=== PATIENT | male | born 1970 | race Caucasian/White ===

== ENCOUNTER 2017-08-06 13:25 | Emergency (ER) | payer BC ==
[2017-08-06 14:08] VITALS: BP 137/76
--- NOTE | 2017-08-06 15:05 | UC ---
Throat Pain/Nasal Harris HPI - HPI Summary HPI Summary: Pt presents with c/o nasal congestion, sinus pressure and tenderness, cough, fever, chills and generalized malaise. Pt did not get flu vaccine this year. - History of Current Complaint Chief Complaint: UCGeneralIllness Stated Complaint: SINUSES Time Seen by Provider: 08/06/17 14:48 Hx Obtained From: Patient Onset/Duration: Gradual Onset Severity: Moderate Pain Intensity: 2 Associated Signs & Symptoms: Positive: Sinus Discomfort, Fever Related History: Smoking - Epiglottits Risk Factors Epiglottis Risk Factors: Negative - Allergies/Home Medications Allergies/Adverse Reactions: Allergies Allergy/AdvReac Type Severity Reaction Status Date / Time Naproxen [From Naprosyn] Allergy Hives Verified 08/06/17 14:08 antibiotic AdvReac Diarrhea Uncoded 08/06/17 14:08 Home Medications: Home Medications Albuterol inh POWDER (NF) [Proair Respiclick] 08/06/17 [History] Spiriva Inhaler DEVICE* [Tiotropium Inhaler DEVICE*] 08/06/17 [History] PMH/Surg Hx/FS Hx/Imm Hx Previously Healthy: No Respiratory History: COPD - Surgical History Surgical History: Yes Surgery Procedure, Year, and Place: b/l hip surgery, R patella fx, hyperesxtension of b/l knees. RIGHT KNEE SURGERY. kidney stone - Family History Known Family History: Positive: Cardiac Disease - Social History Occupation: Employed Full-time Lives: With Family Alcohol Use: Rare Substance Use Type: None Smoking Status (MU): Heavy Every Day Tobacco Smoker Type: Cigarettes Amount Used/How Often: 1 PPD Length of Time of Smoking/Using Tobacco: started ~ age 21 Have You Smoked in the Last Year: Yes Household Exposure Type: Cigarettes Review of Systems Constitutional: Fever, Chills, Fatigue Skin: Negative Eyes: Negative ENT: Sinus Congestion, Sinus Pain/Tenderness Respiratory: Shortness Of Breath, Cough Cardiovascular: Negative Gastrointestinal: Negative Genitourinary: Negative Motor: Negative Neurovascular: Negative Musculoskeletal: Myalgia Neurological: Headache Psychological: Negative Is Patient Immunocompromised?: No All Other Systems Reviewed And Are Negative: Yes Physical Exam Triage Information Reviewed: Yes Appearance: Ill-Appearing Vital Signs: Initial Vital Signs Temp 98.4 F 08/06/17 14:03 Pulse 76 08/06/17 14:03 Resp 18 08/06/17 14:03 BP 137/76 08/06/17 14:03 Pulse Ox 100 08/06/17 14:03 Vital Signs Reviewed: Yes Eye Exam: Normal ENT Exam: Other ENT: Positive: Nasal congestion, TM bulging - bilateral, Sinus tenderness Dental Exam: Normal Neck exam: Normal Respiratory Exam: Normal Cardiovascular Exam: Normal Musculoskeletal Exam: Normal Neurological Exam: Normal Psychological Exam: Normal Skin Exam: Normal Throat Pain/Nasal Course/Dx - Differential Dx/Diagnosis Differential Diagnosis/HQI/PQRI: Influenza, Sinusitis, URI Provider Diagnoses: sinusitis. bronchitis Discharge - Discharge Plan Condition: Stable Disposition: HOME Prescriptions: Amoxicillin/Clavulanate TAB* [Augmentin TAB 875*] 875 mg PO Q12H #20 tab Azithromycin TAB* [Zithromax TAB (Z-JENNIFER) 250 mg #6 tabs] 2 tab PO .TODAY, THEN 1 DAILY #1 jennifer Patient Education Materials: Sinusitis (ED), Acute Bronchitis (ED) Referrals: Andrew Au MD [Primary Care Provider] - If Needed
== END 2017-08-06 15:34 | disposition home or self-care (01) ==
LOC: UCCORT 13:25
DX: J32.9 Chronic sinusitis, unspecified (principal); J40 Bronchitis, not specified as acute or chronic; J44.9 Chronic obstructive pulmonary disease, unspecified; Z87.442 Personal history of urinary calculi; Z88.6 Allergy status to analgesic agent; Z88.1 Allergy status to other antibiotic agents; F17.210 Nicotine dependence, cigarettes, uncomplicated
CPT/HCPCS: 87502; 99212; G0463

== ENCOUNTER 2017-08-12 10:33 | Emergency (ER) | payer BC ==
[2017-08-12 12:19] VITALS: BP 132/85
--- NOTE | 2017-08-12 12:28 | UC ---
Respiratory Complaint HPI - HPI Summary HPI Summary: 46 y/o male presents to the urgent care requesting a re-check on his chest congestion, productive cough. Pt was here at the clinic on 08/06/2017 Dx Sinusitis and bronchitis, Rx Augmentin and Z-neda. He completed z-neda and symptoms are worsening again. Pt states fever for 2 days with mild SOB. Pt denies chest pain, abdominal pain, N/V/D - History of Current Complaint Chief Complaint: UCRespiratory Stated Complaint: F/U CONGESTION COUGH Time Seen by Provider: 08/12/17 12:25 Hx Obtained From: Patient Onset/Duration: Gradual Onset, Lasting Weeks - 1 week, Still Present, Worse Since - 2 days Timing: Constant Severity Initially: Mild Severity Currently: Moderate Pain Intensity: 0 Pain Scale Used: 0-10 Numeric Character: Cough: Productive, Sputum Description: - green Aggravating Factors: Recumbent Position Alleviating Factors: Nothing - ABX Associated Signs And Symptoms: Positive: Fever, Chills, URI, Nasal Congestion, Sinus Discomfort. Negative: Wheezing - Risk Factors Pulmonary Embolism Risk Factors: Negative Cardiac Risk Factors: Negative Pseudomonas Risk Factors: Chronic Lung Disease Tuberculosis Risk Factors: Negative - Allergies/Home Medications Allergies/Adverse Reactions: Allergies Allergy/AdvReac Type Severity Reaction Status Date / Time MS Naproxen [From Naprosyn] Allergy Hives Verified 08/12/17 12:19 antibiotic AdvReac Diarrhea Uncoded 08/12/17 12:19 PMH/Surg Hx/FS Hx/Imm Hx Previously Healthy: Yes Respiratory History: COPD - Surgical History Surgical History: Yes Surgery Procedure, Year, and Place: b/l hip surgery, R patella fx, hyperesxtension of b/l knees. RIGHT KNEE SURGERY. kidney stone - Family History Known Family History: Positive: None, Cardiac Disease, Diabetes - Social History Occupation: Employed Full-time Lives: With Family Alcohol Use: Rare Substance Use Type: None Smoking Status (MU): Heavy Every Day Tobacco Smoker Type: Cigarettes Amount Used/How Often: 1 PPD Length of Time of Smoking/Using Tobacco: started ~ age 21 Have You Smoked in the Last Year: Yes Household Exposure Type: Cigarettes Review of Systems Constitutional: Fever - subjective at home x 2 days, Chills Skin: Negative Eyes: Negative ENT: Nasal Discharge, Sinus Congestion Respiratory: Shortness Of Breath, Cough Cardiovascular: Negative Gastrointestinal: Negative Genitourinary: Negative Motor: Negative Neurovascular: Negative Musculoskeletal: Negative Neurological: Negative Psychological: Negative Is Patient Immunocompromised?: No All Other Systems Reviewed And Are Negative: Yes Physical Exam Triage Information Reviewed: Yes Vital Signs: Initial Vital Signs Temp 97.8 F 08/12/17 12:15 Pulse 80 08/12/17 12:15 Resp 18 08/12/17 12:15 BP 132/85 08/12/17 12:15 Pulse Ox 98 08/12/17 12:15 - Additional Comments Vital Signs Reviewed: Yes General: well developed, well nourished male sitting in the examining table w/o any apparent distress Eyes: Positive: Conjunctiva Clear - PERRLA, EOMI, fundi grossly normal ENT: Positive: Normal ENT inspection, Hearing grossly normal, Pharynx normal, Nasal congestion - edematous and erythematous nasal mucosa, Nasal drainage - yellowish drainage, TMs normal. Negative: Tonsillar swelling, Tonsillar exudate Neck: Positive: Supple, Nontender, No Lymphadenopathy Respiratory: no orthopnea or dyspnea. Able to speak in full sentences, no retractions or accessory muscle use, no tripod position, stridor, or head bobbing.Positive breath sound, scattered rhonchi B/L lungs w/o shlomo wheezing or crackles or rales. Cardiovascular: Positive: RRR, No Murmur, Pulses Normal, Brisk Capillary Refill Abdomen Description: Positive: Nontender, No Organomegaly, Soft. Negative: CVA Tenderness (R), CVA Tenderness (L) Bowel Sounds: Positive: Present Musculoskeletal Exam: Normal Musculoskeletal: Positive: Strength Intact, ROM Intact, No Edema Neurological Exam: Normal Psychological Exam: Normal Skin Exam: Normal Diagnostic Evaluation - Laboratory O2 Sat by Pulse Oximetry: 98 Respiratory Course/Dx - Course Course Of Treatment: 46 y/o male presents to the urgent care requesting a re- check on his chest congestion, productive cough. Pt was here at the clinic on Dx Sinusitis and bronchitis, Rx Augmentin and Z-neda. He completed z-neda and symptoms are worsening again. Pt states fever for 2 days with mild SOB. Pt denies chest pain, abdominal pain, N/V/D. Hx obtained. Pt w/ B/L lungs with scattered rhonchi on examination. Chest X-ray ordered to r/o pneumonia. Impression: No active Cardiopulmonary disease observed. Pt with scattered wheezing on both lungs. O2sat: 98% Pt is a every day smoker. Prednisone 60 mg PO ordered and Duneb treatment ordered. Pt tolerated well medications and her lungs improved. Pt states feeling better. Pt will be Tx for Acute Bronchitis, Pt already taken Z-neda and Augmenting PO w/o any improvement. Pt Rx Doxycycline PO , Prednisone taper dose and Inhaler. Strongly advised to f/u with her PCP for further management on his COPD. Pt understood and agreed with D/C instructions and left the clinic hemodynamically stable. - Differential Dx/Diagnosis Differential Diagnosis/HQI/PQRI: Asthma, Bronchitis, Exacerbation Of COPD, Influenza, Lower Resp Infection, Sinusitis Provider Diagnoses: 1- Acute COPD exacerbation. 2- Acute bronchitis Discharge - Discharge Plan Condition: Stable Disposition: HOME Prescriptions: Albuterol HFA INHALER* [Ventolin HFA Inhaler*] 1 - 2 puff INH Q6H PRN #1 mdi PRN Reason: Cough Albuterol/Ipratropium NEB.MARLYN* [Duoneb (Albuterol 2.5 MG/Ipratropium 0.5 MG)] 1 neb INH Q4H PRN #1 neda PRN Reason: Cough DOXYcycline CAP(*) [DOXYcycline 100MG CAP(*)] 100 mg PO BID #20 cap predniSONE TAB* [Deltasone TAB*] 20 mg PO DAILY #8 tab Patient Education Materials: Acute Bronchitis (ED), COPD (Chronic Obstructive Pulmonary Disease) (ED) Referrals: Andrew Au MD [Primary Care Provider] - 3 Days Additional Instructions: 1-Please take full course of antibiotic to avoid resistance. Start taking Prednisone PO as directed, starting tomorrow. First dose given today at the clinic 2-Use the albuterol inhaler and Neb Tx to alleviate cough. Increase fluid intake , rest and eat well. 3- If symptoms do not improve or worsen or your develop SOB with fever and severe wheezing please go immediately to the ER further evaluation and treatment. 4- F/u with your PCP in 2-3 days for further management on your COPD
[2017-08-12] MEDS ORDERED: Albuterol/Ipratropium NEB.SOL* Albuterol 2.5 MG/Ipratropium 0.5 MG 3 ML INH ONE (12:43)
[2017-08-12] MEDS ORDERED: predniSONE TAB* 20 MG PO ONE (12:43)
--- NOTE | 2017-08-12 13:22 | RAD ---
INDICATION: Cough and congestion COMPARISON: Chest x-ray dated May 21, 2012 TECHNIQUE: PA and lateral views of the chest were obtained. FINDINGS: The heart and mediastinum are normal in size and contour. The lungs are grossly clear. There is no evidence of large pleural effusion. Visualized bones are normal for the patient's age. There is no radiographic evidence of free air beneath the diaphragm IMPRESSION: No radiographic evidence of acute cardiopulmonary disease.
== END 2017-08-12 13:40 | disposition home or self-care (01) ==
LOC: UCCORT 10:33
DX: J44.1 Chronic obstructive pulmonary disease with (acute) exacerbation (principal); J20.9 Acute bronchitis, unspecified; F17.210 Nicotine dependence, cigarettes, uncomplicated
CPT/HCPCS: 71046; 99212; A9270-GY; G0463; J7512

== ENCOUNTER 2019-03-14 07:05 | Emergency (ER) | payer BC ==
[2019-03-14 07:16] VITALS: BP 153/80
--- NOTE | 2019-03-14 07:21 | UC ---
Respiratory Complaint HPI - HPI Summary HPI Summary: 48 yo smoker, seen on 03/08 for evaluation of cough, negative CXR, started on biaxin and steroids for treatment of respiratory illness. He continues to have productive cough, shortness of breath, and purulent sputum. Low grade fevers off and on since Friday. He has headache from coughing so much, and right ear pain, sore throat. He has used his albuterol inhaler up to 6 times per day since Friday. Smokes up to 1.5 ppd. Has not been hospitalized for COPD, has never used a steroid inhaler, does not use a spacing device for his albuterol MDI - History of Current Complaint Chief Complaint: UCGeneralIllness Stated Complaint: COUGH, CONGESTION Time Seen by Provider: 03/14/19 07:19 Hx Obtained From: Patient Onset/Duration: Gradual Onset, Lasting Days Timing: Constant Severity Initially: Moderate Severity Currently: Moderate Pain Intensity: 4 Character: Cough: Productive, Sputum Description: - green nasal discharge, purulent sputum. Aggravating Factors: Exertion, Deep Breaths, Recumbent Position Alleviating Factors: Bronchodilator Associated Signs And Symptoms: Positive: Dyspnea, Fever, Wheezing, Nasal Congestion, Sinus Discomfort - Allergies/Home Medications Allergies/Adverse Reactions: Allergies Allergy/AdvReac Type Severity Reaction Status Date / Time naproxen Allergy Hives Verified 03/14/19 07:16 antibiotic AdvReac Diarrhea Uncoded 03/14/19 07:16 PMH/Surg Hx/FS Hx/Imm Hx Cardiovascular History: Hypertension - states borderline in past, not on treatment. Respiratory History: COPD - Surgical History Surgical History: Yes Surgery Procedure, Year, and Place: b/l hip surgery, R patella fx, hyperesxtension of b/l knees. RIGHT KNEE SURGERY. kidney stone. tonsillectomy - Family History Known Family History: Positive: Cardiac Disease, Diabetes - Social History Occupation: Employed Full-time Lives: With Family Alcohol Use: None Substance Use Type: None Smoking Status (MU): Heavy Every Day Tobacco Smoker Type: Cigarettes Amount Used/How Often: 1 PPD Length of Time of Smoking/Using Tobacco: started ~ age 21 Have You Smoked in the Last Year: Yes Household Exposure Type: Cigarettes Review of Systems All Other Systems Reviewed And Are Negative: Yes Constitutional: Positive: Fever, Fatigue Skin: Positive: Negative ENT: Positive: Sore Throat, Ear Ache, Sinus Congestion Respiratory: Positive: Shortness Of Breath, Cough Cardiovascular: Positive: Negative Gastrointestinal: Positive: Negative Genitourinary: Positive: Negative Musculoskeletal: Positive: Negative Neurological: Positive: Headache Psychological: Positive: Negative Is Patient Immunocompromised?: No Physical Exam Triage Information Reviewed: Yes Appearance: No Pain Distress, Ill-Appearing - Congested cough, looks unwell, Obese Vital Signs: Initial Vital Signs Temp 99.8 F 03/14/19 07:12 Pulse 92 03/14/19 07:12 Resp 18 03/14/19 07:12 BP 153/80 03/14/19 07:12 Pulse Ox 97 03/14/19 07:12 Eyes: Positive: Conjunctiva Clear ENT Exam: Other - class 3 airway, ENT: Positive: Nasal congestion, TM red, Hoarse voice Dental Exam: Normal Neck: Positive: Supple, No Lymphadenopathy, Tenderness @ - right mandibular area , no nodes or masses felt. Respiratory Exam: Other - decreased air entry to bases with coarse crackles and wheezing throughout both lung garcia. Respiratory: Positive: Decreased breath sounds, Crackles, Wheezing, Expiration Cardiovascular: Positive: RRR, No Murmur Musculoskeletal Exam: Normal Neurological Exam: Normal Psychological Exam: Normal Skin Exam: Normal Re-Evaluation - Re-Evaluation First Eval Change: Improved - improved air entry, continues to have coarse crackles R>L lung field Respiratory Course/Dx - Course Course Of Treatment: Clinical evaluation consistent with pneumonia; additional imaging deferred as it would not change treatment. Continue clarithromyin and add cefdinir to antibiotic regimen. He has been given additional steroids, and advised use of spacing device with his albuterol to improve delivery. Followup with PMD. - Differential Dx/Diagnosis Differential Diagnosis/HQI/PQRI: Pulmonary Edema, Exacerbation Of COPD, Lower Resp Infection Provider Diagnosis: COPD exacerbation, Pneumonia Discharge ED - Sign-Out/Discharge Documenting (check all that apply): Patient Departure All imaging exams completed and their final reports reviewed: No Studies - Discharge Plan Condition: Stable Disposition: HOME Prescriptions: Albuterol 2.5MG/3ML (0.083%)* [Ventolin 2.5 MG/3 ML NEB.MARLYN*] 2.5 mg INH Q6H PRN #48 neb.marlyn PRN Reason: Wheezing Cefdinir cap* [Cefdinir 300 MG cap (NF)] 300 mg PO BID #20 cap Inhaler, Assist Devices [Aerochamber Mv] 1 mis XX QID #1 mis predniSONE [Prednisone 20 MG TAB] 6 tab PO DAILY #43 tablet Patient Education Materials: COPD (Chronic Obstructive Pulmonary Disease) (ED) , Bacterial Pneumonia (ED) Referrals: Andrew Au MD [Primary Care Provider] - Additional Instructions: I advise followup with your primary care doctor to check your blood pressure and lungs in 3 to 4 days. Continue biaxin, but add cefdinir 300mg twice daily as a second antibiotic. Resume a tapering steroid course at a higher dose with a slower taper. Use albuterol nebules and inhaler up to 4 times per day. I have sent in a prescription for a chamber to use with your albuterol puffer which will improve the delivery of the medication to the lungs. - Billing Disposition and Condition Condition: STABLE Disposition: Home
[2019-03-14] MEDS ORDERED: Levalbuterol 0.63MG/3ML NEB* UNIT OF USE INH ONE (07:34)
== END 2019-03-14 08:16 | disposition home or self-care (01) ==
LOC: UCCORT 07:05
DX: J44.1 Chronic obstructive pulmonary disease with (acute) exacerbation (principal); J18.9 Pneumonia, unspecified organism; F17.210 Nicotine dependence, cigarettes, uncomplicated; R03.0 Elevated blood-pressure reading, without diagnosis of hypertension
CPT/HCPCS: 99212; G0463

== ENCOUNTER 2019-03-27 11:59 | Emergency (ER) | payer BC ==
[2019-03-27 13:40] VITALS: BP 149/89
[2019-03-27] MEDS ORDERED: Albuterol/Ipratropium NEB.SOL* Albuterol 2.5 MG/Ipratropium 0.5 MG 3 ML INH ONE (13:43)
--- NOTE | 2019-03-27 14:21 | UC ---
Respiratory Complaint HPI - HPI Summary HPI Summary: HAS BEEN ON BIAXIN, CEFDINIR, PREDNISONE AND MDI----FOR THE PAST 2-3 WEEKS--- STOPPED 4 DAYS AGO AND IS NOW FEELING "LIKE HE IS FILLING WITH CONGESTION" sob-- -HAS NOT USED NEB TODAY - History of Current Complaint Chief Complaint: UCRespiratory Stated Complaint: CONGESTION,ST Time Seen by Provider: 03/27/19 13:44 Hx Obtained From: Patient Onset/Duration: Gradual Onset, Lasting Days, Lasting Weeks - 3, Worse Since - past 4-5 days Timing: Constant Pain Intensity: 0 Character: Cough: Productive Aggravating Factors: Nothing Alleviating Factors: Bronchodilator - "ventolin works better than albuterol" patients statment Associated Signs And Symptoms: Positive: Wheezing, URI, Nasal Congestion - Allergies/Home Medications Allergies/Adverse Reactions: Allergies Allergy/AdvReac Type Severity Reaction Status Date / Time naproxen Allergy Hives Verified 03/14/19 07:16 antibiotic AdvReac Diarrhea Uncoded 03/14/19 07:16 Home Medications: Home Medications D-Methorphan/PE/Acetaminophen [Theraflu Expressmax Cold-Cough] 1 liq PO TID PRN 03/27/19 [History Confirmed 03/27/19] PMH/Surg Hx/FS Hx/Imm Hx Previously Healthy: No Respiratory History: COPD - Surgical History Surgical History: Yes Surgery Procedure, Year, and Place: b/l hip surgery, R patella fx, hyperesxtension of b/l knees. RIGHT KNEE SURGERY. kidney stone. tonsillectomy - Family History Known Family History: Positive: None, Cardiac Disease, Diabetes - Social History Occupation: Employed Full-time Lives: With Family Alcohol Use: None Substance Use Type: None Smoking Status (MU): Heavy Every Day Tobacco Smoker Type: Cigarettes Amount Used/How Often: 1 PPD Length of Time of Smoking/Using Tobacco: started ~ age 21 Have You Smoked in the Last Year: Yes Household Exposure Type: Cigarettes Review of Systems All Other Systems Reviewed And Are Negative: Yes Constitutional: Positive: Negative Skin: Positive: Negative Eyes: Positive: Negative ENT: Positive: Sinus Congestion Respiratory: Positive: Shortness Of Breath, Cough - yellow/dark sputum Cardiovascular: Positive: Negative Gastrointestinal: Positive: Negative Genitourinary: Positive: Negative Motor: Positive: Negative Neurovascular: Positive: Negative Musculoskeletal: Positive: Negative Neurological: Positive: Negative Psychological: Positive: Negative Is Patient Immunocompromised?: No Physical Exam Triage Information Reviewed: Yes Appearance: No Pain Distress, Ill-Appearing - acute on chronic illness, Obese Vital Signs: Initial Vital Signs Temp 99 F 03/27/19 13:34 Pulse 100 03/27/19 13:34 Resp 20 03/27/19 13:34 BP 149/89 03/27/19 13:34 Pulse Ox 96 03/27/19 13:34 Vital Signs Reviewed: Yes Eye Exam: Normal Eyes: Positive: Conjunctiva Clear ENT Exam: Normal ENT: Positive: Normal ENT inspection, Hearing grossly normal. Negative: Trismus , Muffled voice, Hoarse voice Dental Exam: Normal Neck exam: Normal Neck: Positive: Supple, Nontender Respiratory Exam: Normal Respiratory: Positive: Chest non-tender, Lungs clear, Normal breath sounds - after neb, No respiratory distress, No accessory muscle use Cardiovascular Exam: Normal Cardiovascular: Positive: RRR, No Murmur, Pulses Normal Musculoskeletal Exam: Normal Musculoskeletal: Positive: Strength Intact, ROM Intact, No Edema Neurological Exam: Normal Neurological: Positive: Alert, Muscle Tone Normal Psychological Exam: Normal Skin Exam: Normal Respiratory Course/Dx - Course Course Of Treatment: motivation interviewing used and sbirt for interventions to decrease/smoking cigarettes---patient acknowledged that smoking is the cause of the problem and he is more interested in quitting now than every before bur refused a chantix rx from [place]---states his smokes and she just got a chantix rx--will rx prednisone, ventolin and zithromax---plan to follow with pcp in nect 1-2 weeks - Differential Dx/Diagnosis Provider Diagnosis: Nicotine dependence with current use, Hypertension, Acute exacerbation of chronic obstructive airways disease Discharge ED - Sign-Out/Discharge Documenting (check all that apply): Patient Departure All imaging exams completed and their final reports reviewed: No Studies - Discharge Plan Condition: Stable Disposition: HOME Prescriptions: Albuterol HFA INHALER* [Ventolin HFA Inhaler*] 2 puff INH Q4H PRN #1 mdi PRN Reason: cough,wheeze Azithromycin TAB* [Zithromax TAB (Z-JENNIFER) 250 mg #6 tabs] 2 tab PO .TODAY, THEN 1 DAILY #1 jennifer predniSONE TAB* [Deltasone 10 MG TAB*] 10 mg PO DAILY #26 tab Patient Education Materials: How to Stop Smoking (ED), COPD (Chronic Obstructive Pulmonary Disease) (ED), Chronic Hypertension (ED) Referrals: Andrew Baumann MD [Primary Care Provider] - 2 Weeks - Billing Disposition and Condition Condition: STABLE Disposition: Home
== END 2019-03-27 14:32 | disposition home or self-care (01) ==
LOC: UCCORT 11:59
DX: J44.1 Chronic obstructive pulmonary disease with (acute) exacerbation (principal); I10 Essential (primary) hypertension; Z88.6 Allergy status to analgesic agent; Z88.1 Allergy status to other antibiotic agents; F17.210 Nicotine dependence, cigarettes, uncomplicated
CPT/HCPCS: 93005; 99212; A9270-GY; G0463